=== PATIENT | female | born 1980 | race Caucasian/White ===

== ENCOUNTER 2020-03-24 06:09 | Day surgery (SDC) | payer OTHER, SELFPAY ==
[2020-03-23 12:31] VITALS: BMI 50.1
[2020-03-24 06:28] VITALS: BP 131/86; PULSE 63; RESP 18; TEMP 36.2; O2SAT 96
--- NOTE | 2020-03-24 06:46 | P.ANESASSM_ITS ---
Pre-Anesthetic Assessment Pre-Anesthetic Assessment: Height/Weight: Height 1.73 m Weight 149.685 kg Preop Diagnosis: Chronic GERD Proposed Procedure: Operation Date: 03/24/20 07:35 Proposed Procedures p EGD 71327 K21.9(Not Applicable) - Chandler Castro MD Social: Social History: Alcohol (occ) and Tobacco Exam: Pre-Anes Outpt Exam: alert, oriented x 3, clear to auscultation bilaterally and regular rate & rhythm Airway: Submandibular: WNL Cervical ROM: WNL MP: 2 Dentition: Other (teeth ok) History/ROS: No significant history except as noted Pulmonary: Pulmonary: Sleep apnea CV/HEM: CV/HEM: HTN : : None reported Hepatic: Hepatic: None reported GI: GI: GERD Metabolic: Metabolic: Morbid obesity Musc/skel: Musc/skel: OA/DJD Comments: right shoulder pain Neuropsych: Neuropsych: Anxiety and Depression Anesthetic Plan: ASA status: 3 Anesthesia: Anesthesia Evaluation and MAC Risk of > 500 ml blood loss (7ml/kg in children): No PFSH Anesthesia PFSH: Medical History Anxiety and depression Fibromyalgia GERD (gastroesophageal reflux disease) History of Papanicolaou smear of cervix (~2013) Hyperlipidemia Hypertension Obesity Surgical History History of appendectomy History of (~2013) History of hysterectomy (~2013) Family History Father Hypertension Cancer non-hodgkins lymphoma Denies family history of Anesthesia complication Bleeding disorder Social History Smoking and tobacco status: current every day smoker cigarettes Quit status (tobacco): has tried quititng Number of times 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 Second hand smoke exposure: Yes Alcohol intake: current Alcohol intake frequency: holidays/special occasions only Alcohol type: wine Desire information about alcohol rehabilitation?: No Desire information about substance/drug rehabilitation?: No Adopted: No Caregiver/support person: Yes Lives independently: Yes Household members: spouse Housing: House Marital status: Highest education level completed: Some College, No Degree service: No Current occupational status: employed Current occupation: paraprofessional Current occupational exposures/hazards: No Pets and animals: Yes History of recent travel: No Sexually active: Yes Current gender identity: Female Yaritza/Zoroastrian: Jainism Special yaritza needs: No Agree to transfusion: Yes Financial difficulty paying for basics: Decline to Answer Female Reproductive History: Date of last menstrual period: 03/29/14 Data Anesthesia Cardiac Studies: No Data to Display
--- NOTE | 2020-03-24 06:47 | P.HP_ITS ---
Same Day Surgery H&P Indication for Procedure/HPI DATE OF PROCEDURE: March 24, 2020 CHIEF COMPLAINT/INDICATIONFOR SURGICAL PROCEDURE: I have worsening heartburn PREOP DIAGNOSIS: Chronic GERD PLANNED PROCEDRUE: Operation Date: 03/24/20 07:35 Proposed Procedures p EGD 05588 K21.9(Not Applicable) - Chandler Castro MD This is a pleasant 39 years old female patient morbidly obese with associated multiple medical comorbidities including chronic GERD and she has been receiving PPI therapy exceeding 6 months, and it is not getting better. Patient was evaluated in my Bariatric surgery office for potential bariatric surgery and part of the work-up and evaluation is diagnostic EGD to clinically that the patient has been having worsening chronic GERD Medications/Allergies* Home Medications Medication Instructions Recorded Confirmed Type atenolol 50 mg tablet 50 mg PO DAILY tab 11/12/19 03/24/20 History atorvastatin 40 mg tablet 40 mg PO DAILY 11/12/19 03/24/20 History carisoprodol 350 mg tablet 350 mg PO DAILY PRN tab 11/12/19 03/24/20 History desvenlafaxine succinate 50 mg 50 mg PO DAILY 11/12/19 03/24/20 History tablet,extended release 24 hr cetirizine 10 mg tablet 10 mg PO QDAY 11/13/19 03/23/20 History omeprazole 40 mg capsule,delayed 40 mg PO DAILY 01/15/20 03/24/20 History release biotin 5 mg PO DAILY 03/24/20 03/24/20 History lysine 1,000 mg PO DAILY 03/24/20 03/24/20 History Allergies/Adverse Reactions Allergy/AdvReac Type Severity Reaction Status Date / Time pregabalin [From Lyrica] Allergy Severe ALGY-Swell Verified 03/24/20 06:49 Lip/Tongue/Throat Pertinent History/Comorbid Conditions* Medical History (Updated 12/12/19 @ 19:14 by Chandler Castro MD) Anxiety and depression Fibromyalgia GERD (gastroesophageal reflux disease) History of Papanicolaou smear of cervix (~2013) Hyperlipidemia Hypertension Obesity Surgical History (Updated 12/12/19 @ 19:14 by Chandler Castro MD) History of appendectomy History of (~2013) History of hysterectomy (~2013) Family History (Updated 11/12/19 @ 12:15 by Caitlin Raman RN) Cancer Father non-hodgkins lymphoma Hypertension Father Denies family history of Anesthesia complication Bleeding disorder Social History Smoking and tobacco status: current every day smoker cigarettes Quit status (tobacco): has tried quititng Number of times tried to quit tobacco: 2 Second hand smoke exposure: Yes Alcohol intake: current Alcohol intake frequency: holidays/special occasions only Alcohol type: wine Desire information about alcohol rehabilitation?: No Desire information about substance/drug rehabilitation?: No Adopted: No Caregiver/support person: Yes Lives independently: Yes Household members: spouse Housing: House Marital status: Highest education level completed: Some College, No Degree service: No Current occupational status: employed Current occupation: paraprofessional Current occupational exposures/hazards: No Pets and animals: Yes History of recent travel: No Sexually active: Yes Current gender identity: Female Yaritza/Congregational: Yarsanism Special yaritza needs: No Agree to transfusion: Yes Financial difficulty paying for basics: Decline to Answer Pertinent Exam Findings alert, oriented x 3, clear to auscultation bilaterally, regular rate & rhythm and procedure specific exam findings (Abdominal examination nontender nondiste nded soft no peritonitis, morbidly obese) Recommendations Surgery/Procedure today (Diagnostic EGD with possible biopsy) Coding Level of Care Code Acute Speed Belt Sander for Lisa Hernandez
[2020-03-24] MEDS: sodium chloride 0.9% 1,000 ML 30 ML IV (06:49)
[2020-03-24 08:15] VITALS: BP 118/71; PULSE 63; RESP 16; TEMP 36.4; O2SAT 96
[2020-03-24 08:36] VITALS: BP 133/73; PULSE 55; RESP 18; O2SAT 96
[2020-03-25 06:28] LABS: H. Pylori / CLO Test Negative
== END 2020-03-24 08:55 | disposition home or self-care (01) ==
PROVIDERS: PCP Nurse Practitioner Family; Visit Provider Surgery
PROC: 0DJ08ZZ Inspection of Upper Intestinal Tract, Via Natural or Artificial Opening Endoscopic (ICD-10-PCS; CPT 43235; principal; 2020-03-24 07:30)
DX: K21.9 Gastro-esophageal reflux disease without esophagitis (principal); K29.70 Gastritis, unspecified, without bleeding; K29.80 Duodenitis without bleeding; F41.9 Anxiety disorder, unspecified; F32.9 Major depressive disorder, single episode, unspecified; E78.5 Hyperlipidemia, unspecified; I10 Essential (primary) hypertension; E66.01 Morbid (severe) obesity due to excess calories; Z68.43 Body mass index [BMI] 50.0-59.9, adult; F17.210 Nicotine dependence, cigarettes, uncomplicated; G47.30 Sleep apnea, unspecified; M19.90 Unspecified osteoarthritis, unspecified site; M79.7 Fibromyalgia
CPT/HCPCS: 12345; 43239; 87077; J2704; J7030

== ENCOUNTER → 2020-11-07 11:54 | Outpatient (BNVA) | payer OTHER, SELFPAY | PROVIDERS: PCP Nurse Practitioner Family; Referring Provider Nurse Practitioner Family; Visit Provider Nurse Practitioner Family | DX: Z20.828 Contact with and (suspected) exposure to other viral communicable diseases (principal) | CPT/HCPCS: 87635 ==